=== PATIENT | female | born 1995 | race Caucasian/White ===

== ENCOUNTER 2019-11-02 05:27 | Day surgery (SDC) | payer OTHER ==
[~2019-11-02] VITALS: Ht 152.4 cm; Wt 54.4 kg
[2019-11-02] MEDS ORDERED: PROPOFOL 200 MG/20 ML VIAL IV ONE (07:15)
[2019-11-02] MEDS ORDERED: ROCURONIUM 50 MG/5 ML VIAL IV ONE (07:15)
[2019-11-02] MEDS ORDERED: SUCCINYLCHOLINE CHLORIDE 200 MG/10 ML VIAL IVP ONE (07:15)
[2019-11-02] MEDS ORDERED: KETOROLAC 30 MG/ML VIAL ONE (07:15)
[2019-11-02] MEDS ORDERED: SEVOFLURANE 250 ML BTL INH ONE (07:15)
[2019-11-02] MEDS ORDERED: DEXAMETHASONE 4 MG/ML VIAL ONE (07:15)
[2019-11-02] MEDS ORDERED: ONDANSETRON 4 MG/2 ML VIAL ONE ×2 (07:15→09:15)
[2019-11-02] MEDS ORDERED: fentaNYL 0.05 MG/ML VIAL ONE (07:35)
[2019-11-02] MEDS ORDERED: MIDAZOLAM 2 MG/2 ML VIAL ONE (07:35)
[2019-11-02] MEDS ORDERED: MEPERIDINE 50 MG/ML SYR ONE (07:36)
[2019-11-02] MEDS ORDERED: LACTATED RINGERS 1,000 ML IV SCH (07:58)
[2019-11-02] MEDS ORDERED: BUPIVACAINE-MPF/EPI 0.25% 30 ML VIAL INJ ONE (07:58)
[2019-11-02] MEDS ORDERED: diphenhydrAMINE 50 MG/ML VIAL IVP PRN (08:00)
[2019-11-02] MEDS ORDERED: MEPERIDINE 25 MG/ML SYR IVP PRN (08:00)
[2019-11-02] MEDS ORDERED: ONDANSETRON 4 MG/2 ML VIAL IVP PRN (08:00)
[2019-11-02] MEDS ORDERED: KETOROLAC 30 MG/ML VIAL IVP SCH (08:00)
[2019-11-02] MEDS ORDERED: HYDROmorphone 1 MG/ML AMP IVP PRN (08:00)
[2019-11-02] MEDS ORDERED: HYDROmorphone PFS 2 MG/ML SYR ONE (08:57)
== END 2019-11-02 10:25 | disposition home or self-care (01) ==
LOC: MDS 05:27 → MMU 06:08 → MDS 10:25
PROVIDERS: ATTEND Obstetrics & Gynecology
DX: Z30.2 Encounter for sterilization (principal); Z31.84 Encounter for fertility preservation procedure
CPT/HCPCS: 36415; 58661; 86886; 86900; 86901; J0330; J1100; J1885; J2175; J2250; J2405; J2704; J3010; J3490; J1170

== ENCOUNTER 2019-11-24 02:40 | Emergency (ER) | payer OTHER ==
[~2019-11-24] VITALS: Ht 152.4 cm; Wt 54.4 kg
[2019-11-24 02:55] VITALS: BP 119/90
--- NOTE | 2019-11-24 02:55 | NUR ---
TO BED # 07 AMBULATORY
--- NOTE | 2019-11-24 02:58 | NUR ---
PT C/O N/V, DRY COUGH, DOMINGUEZ X 3 DAYS. C/O 9/10 HEAD ACHE AND LEFT AND RIGHT FLANK PAIN. PT STATES N/V CONTINOUS AND UNABLE TO KEEP FOOD DOWN. "I STARTED VOMITING BROWN STUFF." PT ADMITS TO GOING TO URGENT CARE 11/23/19 AND ZOFRAN AND IBUPROFEN GIVEN FOR N/V AND FEVER. WAS EFFECTIVE FOR FEVER BUT N/V CAME BACK. PT ALSO TAKING MUCINEX FOR COUGH X 3 DAYS AND NOT EFFECTIVE. RESPIRATIONS ARE EVEN AND UNLABORED. SKIN IS WARM AND DRY TO TOUCH. PT RESTING IN BED EYES CLOSED. BED IN LOWEST POSITION AND LOCKED IN PLACE. MED HX: NONE ALLERGIES: NONE.
[2019-11-24] MEDS ORDERED: ONDANSETRON 4 MG/2 ML VIAL IVP ONE (03:50)
[2019-11-24] MEDS ORDERED: NACL 0.9% 1,000 ML IV ONE (03:50)
--- NOTE | 2019-11-24 04:15 | NUR ---
PT RESTING IN BED EYES CLOSED. RESPIRATIONS ARE EVEN AND UNLABORED. IV SITE @ R AC 20G. NS 0.9% RUNNING CONTINOUSLY IV SITE IS PATENT. NO REDNESS OR SWELLING NOTED AT IV SITE. ZOFRAN GIVEN FOR NAUSEA. PT BED IN LOWEST POSITION BED LOCKED IN PLACE. WILL CONTINUE TO MONITOR.
--- NOTE | 2019-11-24 04:50 | NUR ---
PT RESTING IN BED EYES OPEN. FLUIDS RUNNING CONTINOUSLY. PT IV SITE IS PATENT, WITH NO REDNESS OR SWELLING NOTED. PT ADMITS TO STILL FEELING "SLIGHTLY NAUSEOUS." PT RESPIRATIONS ARE EVEN AND UNLABORD. SKIN IS WARM AND DRY TO TOUCH. PT BED IN LOWEST POSITION AND LOCKED IN PLACE.
--- NOTE | 2019-11-24 05:00 | NUR ---
Patient discharged with v/s stable. Written and verbal after care instructions given and explained. Patient alert, oriented and verbalized understanding of instructions. Ambulatory with steady gait. All questions addressed prior to discharge. ID band removed. Patient advised to follow up with PMD. Rx of ZOFRAN, PROMETHAZINE given. Patient educated on indication of medication including possible reaction and side effects. Opportunity to ask questions provided and answered.
[2019-11-24 05:16] VITALS: BP 118/76
--- NOTE | 2019-12-01 09:10 | NUR ---
Late entry. Confirmed with RN that 0.9 NS IV completed at 0501
== END 2019-11-24 05:00 | disposition home or self-care (01) ==
LOC: MED 02:40
DX: J06.9 Acute upper respiratory infection, unspecified (principal); R11.10 Vomiting, unspecified
CPT/HCPCS: 81002; 96361; 96374; 99283; J2405; J7030